=== PATIENT | female | born 1955 | race Asian ===

== ENCOUNTER 2018-02-26 12:26 | Emergency (ER) | payer BC ==
[~2018-02-26] VITALS: Ht 152.4 cm; Wt 48.6 kg
[2018-02-26] MEDS ORDERED: CLIN300C13 PO (13:01)
[2018-02-26] MEDS ORDERED: CHLO473M3 PO (13:01)
[2018-02-26] MEDS ORDERED: HYDR-565 PO (13:01)
[2018-02-26 13:19] VITALS: BP 98/46
== END 2018-02-26 13:33 | disposition home or self-care (01) ==
LOC: ER 12:27
DX: S01.511A Laceration without foreign body of lip, initial encounter (principal); K08.109 Complete loss of teeth, unspecified cause, unspecified class; Z88.0 Allergy status to penicillin; W01.0XXA Fall on same level from slipping, tripping and stumbling without subsequent striking against object, initial encounter; Y93.89 Activity, other specified; Y92.89 Other specified places as the place of occurrence of the external cause; Y99.8 Other external cause status
CPT/HCPCS: 99284

== ENCOUNTER 2024-06-24 20:07 | Emergency (ER) | payer MEDICARE, OTHER ==
[~2024-06-24] VITALS: Ht 152.4 cm; Wt 42.4 kg
[~2024-06-24 20:07] MED LIST: CHLO473M13 PO; CLIN-216 PO
[2024-06-24 21:55] VITALS: BP 126/81; PULSE 71; RESP 16; TEMP 97.9; O2SAT 98
== END 2024-06-24 21:56 | disposition home or self-care (01) ==
LOC: ER 20:09
DX: S01.81XA Laceration without foreign body of other part of head, initial encounter (principal); Z88.0 Allergy status to penicillin; W19.XXXA Unspecified fall, initial encounter; Y93.89 Activity, other specified; Y92.89 Other specified places as the place of occurrence of the external cause; Y99.8 Other external cause status
CPT/HCPCS: 12013; 70450; 72125; 99284; A6402; Z7610; A6449